=== PATIENT | female | born 1980 | race Caucasian/White ===

== ENCOUNTER 2021-12-08 12:36 | Emergency (ER) | payer MEDICAID ==
[2021-12-08] MEDS ORDERED: Lactated Ringers 1,000 ML ONE (13:31)
[2021-12-08] MEDS ORDERED: LORazepam 2 MG/ML SDV ONE ×2 (13:32→17:27)
[2021-12-08] MEDS ORDERED: Loperamide 2 MG Cap ONE (13:32)
[2021-12-08] MEDS ORDERED: cloNIDine 0.1 MG Tab ONE (13:32)
[2021-12-08] MEDS ORDERED: Metoclopramide 10 MG/2 ML SDV ONE ×2 (13:32→15:16)
[2021-12-08] MEDS ORDERED: Metoclopramide 10 MG/2 ML SDV IM ONE (15:20)
[2021-12-08] MEDS ORDERED: LORazepam 2 MG/ML SDV IM ONE (15:21)
[2021-12-08] MEDS ORDERED: Loperamide 2 MG Cap PO ONE (15:50)
[2021-12-08] MEDS ORDERED: cloNIDine 0.1 MG Tab PO ONE (15:50)
[2021-12-08] MEDS ORDERED: Lactated Ringers 1,000 ML IV ONE (16:08)
[2021-12-08] MEDS ORDERED: diphenhydrAMINE 50 MG/ML SDV ONE (17:27)
[2021-12-08] MEDS ORDERED: diphenhydrAMINE 50 MG/ML SDV IVPUSH ONE (17:30)
[2021-12-08] MEDS ORDERED: LORazepam 2 MG/ML SDV IVPUSH ONE (17:33)
== END 2021-12-08 17:55 | disposition home or self-care (01) ==
LOC: JD.ED 12:36
DX: F11.23 Opioid dependence with withdrawal (principal)
CPT/HCPCS: 96361; 96372; 96374; 96375; 99283; A9270; J1200; J2060; J2765; J7120

== ENCOUNTER 2023-05-22 09:10 | Emergency (ER) | payer MEDICAID ==
[2023-05-22 10:51] LABS: BASOPHILS PERCENT AUTO 0.4 % (0.0-1.0); EOSINOPHILS ABSOLUTE AUTO 0.1 K/mm3 (0.0-0.4); HEMATOCRIT 33.6 % (37.0-47.0); HEMOGLOBIN 10.5 gm/dl (12.0-16.0); IMMATURE GRAN ABSOLUTE AUTO 0.02 K/mm3 (0.00-0.05); IMMATURE GRAN PERCENT AUTO 0.3 % (0.0-0.4); LYMPHOCYTES ABSOLUTE AUTO 1.2 K/mm3 (1.0-4.8); LYMPHOCYTES PERCENT AUTO 17.3 % (24.0-44.0); MEAN CORPUSCULAR HEMOGLOBIN 22.5 pg (28.0-32.0); MEAN CORPUSCULAR HGB CONC 31.3 g/dl (32.0-36.0); MEAN CORPUSCULAR VOLUME 71.9 fl (83.0-99.0); MEAN PLATELET VOLUME 9.8 fl (9.4-12.3); MONOCYTES ABSOLUTE AUTO 0.4 K/mm3 (0.0-0.8); MONOCYTES PERCENT AUTO 5.8 % (0.0-8.0); NEUTROPHILS ABSOLUTE AUTO 5.1 K/mm3 (1.8-7.7); NEUTROPHILS PERCENT AUTO 75.2 % (41.0-71.0); PLATELET COUNT,PLT 283 K/mm3 (150-400); RED BLOOD CELL COUNT 4.67 M/mm3 (4.10-5.30); WHITE BLOOD CELL COUNT,WBC 6.76 K/mm3 (3.9-11.3)
[2023-05-22] MEDS: Metoclopramide 10 MG/2 ML SDV IVPUSH ONE (11:02)
[2023-05-22] MEDS: HYDROmorphone 0.5 MG/0.5 ML Syringe IVPUSH ONE (11:02)
[2023-05-22] MEDS: Dextrose 5%-0.9% NaCl 1,000 ML IV SCH (11:02)
[2023-05-22 11:06] LABS: INR 0.94; PROTHROMBIN TIME 10.1 SECONDS (9.7-12.0)
[2023-05-22 11:07] LABS: PTT,PARTIAL THROMBOPLSTIN TIME 26.6 SECONDS (21.7-31.4)
[2023-05-22 11:10] LABS: ALANINE AMINOTRANSFERASE,ALT 17 U/L (14-59); ALBUMIN 3.8 g/dl (3.4-5.0); ALKALINE PHOSPHATASE 73 U/L (46-116); ANION GAP 16.9 (5-15); ASPARTATE AMNIOTRANSFERASE,AST 11 U/L (15-37); BILIRUBIN TOTAL 0.3 mg/dL (0.2-1.0); BLOOD UREA NITROGEN,BUN 10 mg/dL (7-18); CALCIUM 8.6 mg/dL (8.5-10.1); CARBON DIOXIDE,CO2 21 mEq/L (21-32); CHLORIDE,CL 104 mEq/L (98-107); CREATININE 0.4 mg/dL (0.55-1.02); EST CRCL DRUG DOSING (CG) 141.95 mL/min; ESTIMATED GFR 125 mL/min (>60); GAMMA GLUTAMYL TRANSFERASE,GGT 14 U/L (5-55); GLUCOSE RANDOM 109 mg/dL (70-99); LIPASE 48 U/L (16-77); MAGNESIUM 1.9 mg/dL (1.8-2.4); POTASSIUM,K 3.9 mEq/L (3.5-5.1); PROTEIN TOTAL,TP 7.6 g/dl (6.4-8.2); SODIUM,NA 138 mEq/L (136-145)
[2023-05-22 11:13] LABS: C-REACTIVE PROTEIN < 0.05 mg/dL (<0.30)
[2023-05-22] MEDS: Magnesium Citrate Solution 296 ML Bottle PO ONE (13:01)
[2023-05-22] MEDS: Lactated Ringers 1,000 ML IV SCH (13:02)
== END 2023-05-22 14:30 | disposition home or self-care (01) ==
LOC: JD.ED 09:10
DX: K59.01 Slow transit constipation (principal); R11.2 Nausea with vomiting, unspecified; E86.9 Volume depletion, unspecified; K92.9 Disease of digestive system, unspecified; Z86.16 Personal history of COVID-19
CPT/HCPCS: 36415; 74018; 80053; 80307; 82010; 82977; 83605; 83690; 83735; 85025; 85610; 85730; 86140; 96361; 96374; 96375; 99284; A9270; J1170; J2765; J7042; J7120

== ENCOUNTER 2024-01-29 23:09 | Emergency (ER) | payer MEDICAID ==
[2024-01-30] MEDS ORDERED: Sodium Chloride 0.9% 10 ML Syringe FLUSH PRN (00:32)
[2024-01-30] MEDS: Sodium Chloride 0.9% 1,000 ML IV ONE (00:49)
[2024-01-30 00:55] LABS: BASOPHILS PERCENT AUTO 0.4 % (0.0-1.0); EOSINOPHILS ABSOLUTE AUTO 0.1 K/mm3 (0.0-0.4); EOSINOPHILS PERCENT AUTO 1.4 % (0.0-6.0); HEMOGLOBIN 8.7 gm/dl (12.0-16.0); IMMATURE GRAN ABSOLUTE AUTO 0.01 K/mm3 (0.00-0.05); IMMATURE GRAN PERCENT AUTO 0.2 % (0.0-0.4); LYMPHOCYTES ABSOLUTE AUTO 1.3 K/mm3 (1.0-4.8); LYMPHOCYTES PERCENT AUTO 26.5 % (24.0-44.0); MEAN CORPUSCULAR HGB CONC 31.1 g/dl (32.0-36.0); MEAN CORPUSCULAR VOLUME 70.9 fl (83.0-99.0); MEAN PLATELET VOLUME 9.3 fl (9.4-12.3); MONOCYTES ABSOLUTE AUTO 0.4 K/mm3 (0.0-0.8); MONOCYTES PERCENT AUTO 7.1 % (0.0-8.0); NEUTROPHILS ABSOLUTE AUTO 3.2 K/mm3 (1.8-7.7); NEUTROPHILS PERCENT AUTO 64.4 % (41.0-71.0); PLATELET COUNT,PLT 252 K/mm3 (150-400); RED BLOOD CELL COUNT 3.95 M/mm3 (4.10-5.30); WHITE BLOOD CELL COUNT,WBC 4.95 K/mm3 (3.9-11.3)
[2024-01-30 01:16] LABS: A/G RATIO 1.1 (1-2); ALBUMIN 3.4 g/dl (3.4-5.0); ANION GAP 12.9 (5-15); BILIRUBIN TOTAL 0.2 mg/dL (0.2-1.0); CALCIUM 8.2 mg/dL (8.5-10.1); CREATININE 0.8 mg/dL (0.55-1.02); EST CRCL DRUG DOSING (CG) 70.98 mL/min; MAGNESIUM 1.8 mg/dL (1.8-2.4); POTASSIUM,K 3.9 mEq/L (3.5-5.1); PROTEIN TOTAL,TP 6.5 g/dl (6.4-8.2)
== END 2024-01-30 07:56 | disposition home or self-care (01) ==
LOC: JD.ED 23:09
DX: R46.4 Slowness and poor responsiveness (principal); R40.0 Somnolence; D64.9 Anemia, unspecified; Z86.59 Personal history of other mental and behavioral disorders; Z86.16 Personal history of COVID-19; Z79.899 Other long term (current) drug therapy
CPT/HCPCS: 36415; 70450; 71045; 80053; 80143; 80179; 80307; 82272; 83735; 84703; 85025; 93005; 96360; 96361; 99285; J7030; 93010; 99284

== ENCOUNTER 2024-03-15 17:26 | Emergency (ER) | payer MEDICAID ==
[2024-03-15] MEDS: Amoxicillin/Clavulanate K 875-125 MG Tab PO ONE (19:13)
[2024-03-15] MEDS: Ketorolac 30 MG/ML SDV IM ONE (19:13)
== END 2024-03-15 19:42 | disposition home or self-care (01) ==
LOC: JD.ED 17:26
DX: K02.9 Dental caries, unspecified (principal); Z79.899 Other long term (current) drug therapy; Z86.16 Personal history of COVID-19
CPT/HCPCS: 96372; 99282; A9270; J1885

== ENCOUNTER 2024-05-23 23:32 | Emergency (ER) | payer MEDICAID ==
[2024-05-23 23:59] LABS: APPEARANCE,URINE SLT CLOUDY (Clear); BILIRUBIN,URINE 1+ (Negative); COLOR,URINE YELLOW (Yellow); GLUCOSE,URINE NEGATIVE (Negative); KETONES,URINE TRACE (Negative); LEUKOCYTE ESTERASE,URINE NEGATIVE (Negative); NITRITE,URINE NEGATIVE (Negative); OCCULT BLOOD,URINE 3+ (Negative); PH,URINE 5.5 (5.0-8.0); PROTEIN,URINE 2+ (Negative); UROBILINOGEN,URINE 0.2 (0.2-1.0)
[2024-05-24 00:24] LABS: BACTERIA,URINE FEW /hpf (FEW); MUCUS,URINE MODERATE /hpf (FEW); RBC,URINE 50-75 /hpf (0-5); WBC,URINE 20-30 /hpf (0-5)
[2024-05-24 00:46] LABS: BASOPHILS ABSOLUTE AUTO 0.1 K/mm3 (0.0-0.2); BASOPHILS PERCENT AUTO 0.7 % (0.0-1.0); EOSINOPHILS ABSOLUTE AUTO 0.1 K/mm3 (0.0-0.4); EOSINOPHILS PERCENT AUTO 1.1 % (0.0-6.0); HEMATOCRIT 41.9 % (37.0-47.0); HEMOGLOBIN 14.2 gm/dl (12.0-16.0); IMMATURE GRAN ABSOLUTE AUTO 0.02 K/mm3 (0.00-0.05); IMMATURE GRAN PERCENT AUTO 0.2 % (0.0-0.4); LYMPHOCYTES ABSOLUTE AUTO 1.7 K/mm3 (1.0-4.8); LYMPHOCYTES PERCENT AUTO 20.7 % (24.0-44.0); MEAN CORPUSCULAR HGB CONC 33.9 g/dl (32.0-36.0); MEAN CORPUSCULAR VOLUME 82.6 fl (83.0-99.0); MEAN PLATELET VOLUME 9.7 fl (9.4-12.3); MONOCYTES ABSOLUTE AUTO 0.5 K/mm3 (0.0-0.8); MONOCYTES PERCENT AUTO 6.4 % (0.0-8.0); NEUTROPHILS ABSOLUTE AUTO 5.7 K/mm3 (1.8-7.7); NEUTROPHILS PERCENT AUTO 70.9 % (41.0-71.0); PLATELET COUNT,PLT 298 K/mm3 (150-400); RED BLOOD CELL COUNT 5.07 M/mm3 (4.10-5.30); WHITE BLOOD CELL COUNT,WBC 8.02 K/mm3 (3.9-11.3)
[2024-05-24 01:00] LABS: A/G RATIO 1.1 (1-2); ANION GAP 13.2 (5-15); BILIRUBIN TOTAL 0.3 mg/dL (0.2-1.0); BUN/CREATININE RATIO 12.5 (14-18); CALCIUM 9.2 mg/dL (8.5-10.1); CREATININE 0.8 mg/dL (0.55-1.02); EST CRCL DRUG DOSING (CG) 70.24 mL/min; POTASSIUM,K 3.2 mEq/L (3.5-5.1); PROTEIN TOTAL,TP 7.6 g/dl (6.4-8.2)
[2024-05-24 02:15] LABS: C. TRACHOMATIS BY PCR DETECTED; N. GONORRHOEAE BY PCR NOT DETECTED
[2024-05-24] MEDS: cefTRIAXone 500 MG, Lidocaine 1% 1 ML IM ONE (03:13)
[2024-05-24] MEDS: Doxycycline Monohydrate 100 MG Cap PO ONE (03:13)
== END 2024-05-24 03:20 | disposition home or self-care (01) ==
LOC: JD.ED 23:32
DX: A74.9 Chlamydial infection, unspecified (principal); E03.9 Hypothyroidism, unspecified; Z86.16 Personal history of COVID-19; F17.210 Nicotine dependence, cigarettes, uncomplicated
CPT/HCPCS: 36415; 80053; 81001; 83690; 84703; 85025; 87491; 87591; 96372; 99283; 99284; A9270-GY; J0696; J2003